=== PATIENT | male | born 1955 | race Caucasian/White ===

== ENCOUNTER 2021-01-12 10:25 | Observation (INO) | payer OTHER, MEDICARE, SELFPAY ==
[2021-01-12] VITALS (14 sets, daily range): BP systolic 62–137; BP diastolic 19–87; PULSE 0–71; RESP 10–18; TEMP 36.3–37.1; O2SAT 74–99; BMI 38.0; BMI 35.2
--- NOTE | 2021-01-12 10:29 | RAD_ITS ---
STUDY: X-RAY CHEST REASON FOR EXAM: Male, 65 years old. Substernal chest pain TECHNIQUE: Single AP portable view of the chest. COMPARISON: 04/06/2012 FINDINGS: EKG leads overlie the chest The lungs are clear and expanded. There is no demonstrated pleural abnormality. Normal size heart. Normal mediastinum and althea. Normal visualized pulmonary arteries. Normal visualized aortic arch and descending thoracic aorta. Normal visualized thoracic spine. Normal visualized ribs, clavicles, and shoulders. There is no demonstrated abnormality of the visualized soft tissue structures of the upper abdomen. RAD/Chest 1 View (Portable) IMPRESSION: No acute pulmonary process Electronically Signed: Alan Murphy MD at 11:17 EDT , Service support ,
--- NOTE | 2021-01-12 10:29 | EKG12_ITS ---
Test Reason : CP Blood Pressure : / mmHG Vent. Rate : 054 BPM Atrial Rate : 054 BPM P-R Int : 250 ms QRS Dur : 088 ms QT Int : 424 ms P-R-T Axes : -26 -37 -20 degrees QTc Int : 402 ms Sinus bradycardia with 1st degree A-V block Left axis deviation Low voltage QRS Inferior infarct , age undetermined Cannot rule out Anteroseptal infarct , age undetermined Abnormal ECG Confirmed by JERRICA CLEMENT, DOMENIC ([id number]), senior editor TIBURCIO CRYSTAL ([id number]) on 01/17/2021 9:49:02 AM Referred By: OLGA LIDIA Confirmed By:HAYLIE BECERRIL MD
--- NOTE | 2021-01-12 10:33 | ED.VIS.CHEST ---
HPI History of Present Illness Chief Complaint: Chest Pain Narrative Narrative: Patient presents with about an hour and a half of chest pain he was sitting down when it started. Pain is described as pain. There is some slight radiation to the back but no tearing sensation. There is no pleuritic component. No lower extremity edema. No calf pain. No recent fever chills cough or congestion. There is no epigastric pain. No nausea or vomiting. PFSH PFS Medical History Asthma COPD (chronic obstructive pulmonary disease) Former smoker Hypertension Myocardial infarct Sleep apnea Allergy/AdvReac Type Severity Reaction Status Date / Time No Known Allergies Allergy Verified 01/12/21 10:29 Surgical History History of coronary artery stent placement Social History Smoking Status: Former smoker ROS ROS ED ROS Narrative Past medical history: Significant for prior VA in 2011 with 5 stents, hypertension, hypercholesterolemia. Medications: Reviewed in the medical record Social history: Noncontributory, does not smoke Review of systems: All systems negative except as indicated General: No fever Eyes: No visual changes ENT: No upper airway congestion, normal voice Neck: No neck pain Cardiovascular: Chest pain as in HPI Respiratory: No shortness of breath or cough Gastrointestinal: No abdominal pain, nausea vomiting or diarrhea Genitourinary: No dysuria Musculoskeletal: Denies myalgias no difficulty with ambulation Skin: No rash Neurological: No memory loss, confusion or any focal weakness Psych: No recent behavioral changes Hematologic: No easy bleeding or easy bruising EXAM Physical Exam Narrative Exam Narrative: Physical exam General: Patient appears chronically ill, BMI of 38, appears slightly anxious but does not appear in significant distress. Head: Normocephalic, Atraumatic Eyes: Conjunctiva not pale ENT: Moist mucous membranes Neck: Supple, Nontender, No lymphadenopathy Cardiovascular: Regular rate, Regular rhythm. I cannot reproduce chest wall pain Respiratory: No distress, CTA bilaterally Abdomen: Soft, Nontender, Nondistended Back: Nontender, Normal Inspection. Negative for: CVA tenderness Extremities: Nontender, trace symmetric bilateral lower extremity edema no calf pain. Skin: Normal color, No rash Neurological: Alert, Normal Strength, Normal Sensation Psychological: Normal affect, quite pleasant appears slightly anxious Const Vital Signs: 01/12/21 10:25 01/12/21 10:29 01/12/21 10:35 Temperature 97.5 F L Temperature Source Temporal Pulse Rate 56 L 60 Respiratory Rate 12 Respiratory Effort Normal Non-Labored Blood Pressure 121/82 H 118/77 Blood Pressure Mean 95 Pulse Ox 96 Oxygen Delivery Method Room Air 01/12/21 11:47 01/12/21 12:18 Temperature Temperature Source Pulse Rate 62 71 Respiratory Rate 10 L 18 Respiratory Effort Blood Pressure 126/87 H 101/85 H Blood Pressure Mean 100 90 Pulse Ox 99 99 Oxygen Delivery Method Room Air Room Air Heart Score History: Moderately Suspicious ECG: Nonspecific Repolarization Age: >/= 65 years Risk Factors: >/= 3 Risk Factors or History of CAD Score: 6 MDM MDM MDM Narrative Medical decision making narrative: Patient had significant chest pain however he also has a's very small PE the chest pain may not be related to the PE and he has quite a few risk factors therefore I believe he should be admitted for observation. I gave him Lovenox. Lab Data Labs: Laboratory Results - last 24 hr 01/12/21 01/12/21 01/12/21 10:40 10:40 10:40 WBC 8.5 RBC 3.32 L Hgb 8.6 L Hct 28.4 L MCV 85.5 MCH 25.9 L MCHC 30.3 L RDW Std Deviation 44.8 H RDW Coeff of Alanna 14.5 Plt Count 369 MPV 9.9 Immature Gran % (Auto) 0.400 Neut % (Auto) 77.5 H Lymph % (Auto) 12.9 L Dougherty % (Auto) 5.4 Eos % (Auto) 3.3 Baso % (Auto) 0.5 Absolute Neuts (auto) 6.6 Absolute Lymphs (auto) 1.09 Nucleated RBC % 0 Sodium 142 Potassium 4.2 Chloride 109 H Carbon Dioxide 28.0 Anion Gap 5 BUN 17 Creatinine 0.70 Estim Creat Clear Calc 115.48 Est GFR (MDRD) Af Amer 144 Est GFR (MDRD) Non-Af 119 BUN/Creatinine Ratio 24.1 H Glucose 160 H Calcium 8.8 Magnesium 2.3 Total Bilirubin 0.80 AST 13 L ALT 16 Alkaline Phosphatase 77 Troponin I < 0.015 B-Natriuretic Peptide Total Protein 6.2 L Albumin 3.1 L Globulin 3.1 Albumin/Globulin Ratio 1.0 01/12/21 10:40 WBC RBC Hgb Hct MCV MCH MCHC RDW Std Deviation RDW Coeff of Alanna Plt Count MPV Immature Gran % (Auto) Neut % (Auto) Lymph % (Auto) Dougherty % (Auto) Eos % (Auto) Baso % (Auto) Absolute Neuts (auto) Absolute Lymphs (auto) Nucleated RBC % Sodium Potassium Chloride Carbon Dioxide Anion Gap BUN Creatinine Estim Creat Clear Calc Est GFR (MDRD) Af Amer Est GFR (MDRD) Non-Af BUN/Creatinine Ratio Glucose Calcium Magnesium Total Bilirubin AST ALT Alkaline Phosphatase Troponin I B-Natriuretic Peptide 72.6 Total Protein Albumin Globulin Albumin/Globulin Ratio Radiography Diagnostic Testing: Radiology Impression Chest X-Ray 01/12/21 10:29 IMPRESSION: No acute pulmonary process Electronically Signed: Alan Murphy MD at 11:17 EDT , Service support , Chest CTA 01/12/21 11:55 IMPRESSION: Subtle low-density filling defect noted within a distal branch leading to the left lower lobe consistent with PE. Calcified coronary vessels Peripheral calcifications in the thoracic aorta without aneurysm No superimposed infiltrate or effusion Electronically Signed: Alan Murphy MD at 12:22 EDT , Service support , ADDENDUM: 01/12/21 1241 EKG Initial EKG: Comments: Sinus rhythm with a rate of 54. Prolonged DE interval at 250. Normal QTC. Nonspecific ST changes throughout and inferior Q waves. Poor progression of the R wave in precordial leads. Interpreted by emergency doctor Discharge Plan Dx/Rx/DC Orders Clinical Impression: Pulmonary embolism on left, Atypical chest pain Disposition Disposition: Acute Care Hospital [facility] Discharge Date/Time: 01/12/21 13:40
[2021-01-12] MEDS: Nitroglycerin SL (ED/IMG/CATH) 0.4 MG TABLET SL (10:35)
[2021-01-12 10:51] LABS: Absolute Lymphocyte Count 1.09 X10^3/uL (0.83-4.51); Absolute Neutrophil Count 6.6 X10^3/uL (2.0-7.7); Basophil# 0.04 X10^3/uL; Basophil% 0.5 % (0-1); Eosinophil# 0.28 X10^3/uL; Eosinophils% 3.3 % (0-5); Hematocrit 28.4 % (40-54); Hemoglobin 8.6 g/dL (13.0-16.5); Lymphocyte # 1.09 X10^3/ul (0.83-4.51); Lymphocyte % 12.9 % (19-41); Mean Corp Hgb Conc 30.3 g/dL (32-36); Mean Corpuscular Hgb 25.9 pg (27.0-32.0); Mean Corpuscular Volume 85.5 fL (80-94); Mean Platelet Vol. 9.9 fl (6.2-12.0); Monocyte# 0.46 X10^3/uL; Monocyte% 5.4 % (0-10); NRBC Flagged by Analyzer 0 % (0-5); Neutrophil # 6.55 X10^3/uL (2.7-7.7); Neutrophil % 77.5 % (47-70); Platelet Count 369 K/mm3 (150-450); RBC Distribution Width CV 14.5 % (11.6-14.6); RBC Distribution Width SD 44.8 fl (35.1-43.9); Red Blood Count 3.32 M/mm3 (4.6-6.2); White Blood Count 8.5 K/mm3 (4.4-11.0)
[2021-01-12 11:07] LABS: AST(SGOT) 13 U/L (15-37); Alanine Aminotransfer ALT/SGPT 16 U/L (16-61); Albumin, Serum 3.1 g/dL (3.2-5.0); Alkaline Phosphatase 77 U/L (45-117); Anion Gap 5 (5-15); BUN 17 mg/dL (7-18); BUN/Creat Ratio 24.1 RATIO (10-20); Calcium,Total 8.8 mg/dL (8.5-10.1); Chloride 109 mmol/L (98-107); EST Glomerular Filtration Rate 119 mL/min (>60); Est Glom Filt Rate - Afr Amer 144 mL/min (>60); Estimated Creatinine Clearance 115.48 ml/min; Globulin 3.1 g/dL (2.2-4.2); Glucose 160 mg/dL (74-106); Potassium 4.2 mmol/L (3.5-5.1); Protein, Total 6.2 g/dL (6.4-8.2); Sodium Level 142 mmol/L (136-145)
[2021-01-12] MEDS: Morphine 4 MG/ML Syringe IV (11:11)
[2021-01-12] MEDS: Ondansetron 4 MG/2 ML Vial IV (11:11)
[2021-01-12] MEDS: Famotidine 200 MG/20 ML MDV 20 MG in 0.9% Normal Saline (Pres. free 8 ML 300 MG IV (11:19)
--- NOTE | 2021-01-12 11:55 | CT_ITS ---
STUDY: CTA CHEST REASON FOR EXAM: Male, 65 years old. Worsening shortness of breath RADIATION DOSAGE (If Supplied By Facility): CTDIvol = ( 13.85 ) mGy, DLP = ( 568.35 ) mGycm TECHNIQUE: The examination was performed with the intravenous administration of IV 100mL Isovue-370. Post-processing of the angiographic images was performed, with multiplanar reformation and 3D reconstruction. Individualized dose optimization techniques were used for this CT. COMPARISON: None. FINDINGS: There is a very subtle low-density filling defect noted within a branch leading to the left lower lobe best seen on axial images 120 through 126.. There is no demonstrated filling defect within either main pulmonary artery over the first round of branches. No other filling defects are noted in other pulmonary lobes. There is atherosclerotic calcification of the aortic arch with tortuosity. There is no demonstrated aortic dissection. Normal heart and pericardium. There are calcifications of the coronary arteries. Normal mediastinum. Normal hilar regions. Normal visualized trachea and bronchi. The lungs are well expanded. Chronic interstitial changes noted in both lung dobbs without a superimposed acute pulmonary process solid dependent atelectasis noted. Normal pleura. Normal chest wall structures. There are degenerative changes of thoracic spine. Normal visualized upper abdomen. CT/CTA Chest W/WO Contrast IMPRESSION: Subtle low-density filling defect noted within a distal branch leading to the left lower lobe consistent with PE. Calcified coronary vessels Peripheral calcifications in the thoracic aorta without aneurysm No superimposed infiltrate or effusion Electronically Signed: Alan Murphy MD at 12:22 EDT , Service support ,
[2021-01-12] MEDS: HYDROmorphone 1 MG/ML Syringe IV ×2 (12:32→17:44)
--- NOTE | 2021-01-12 12:59 | NURSING ---
MED SURG OBS SEAN TEMPLE, CP
[2021-01-12] MEDS: Enoxaparin 120 MG/0.8 ML Syringe SC (13:01)
--- NOTE | 2021-01-12 13:01 | NURSING ---
CALLED MONICA JONES. LEFT MESSAGE WITH INFO ON IT.
[2021-01-12 13:11] LABS: Magnesium 2.3 mg/dL (1.6-2.6)
--- NOTE | 2021-01-12 14:03 | EKG12_ITS ---
Test Reason : Blood Pressure : / mmHG Vent. Rate : 064 BPM Atrial Rate : 064 BPM P-R Int : 238 ms QRS Dur : 092 ms QT Int : 406 ms P-R-T Axes : 010 -26 -21 degrees QTc Int : 418 ms Sinus rhythm with 1st degree A-V block Low voltage QRS Inferior infarct , age undetermined Abnormal ECG When compared with ECG of 12-JAN-2021 10:26, MANUAL COMPARISON REQUIRED, DATA IS UNCONFIRMED Confirmed by JERRICA CLEMENT, DOMENIC ([id number]), story editor TIBURCIO CRYSTAL ([id number]) on 01/17/2021 10:23:37 A M Referred By: SEAN Confirmed By:HAYLIE BECERRIL MD
--- NOTE | 2021-01-12 14:31 | PCM.HP.STD ---
HPI - General General Date of Admission: 01/12/21 HPI Narrative EMILY GUAJARDO, is a 65 M who presents chest pain, midsternal started about 9:30 AM today. Chest pain is sharp, with radiation to back. There is no associated shortness of breath, dyspnea on exertion, diaphoresis, dizziness. Patient has history of coronary artery status post 5 stents in 2011 in quick succession but thereafter he did not had significant chest pain or heart attack. Patient had multiple right hip surgery by [facility]. 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 He was discharged off prophylactic anticoagulant from SNF. In ED, CT angiogram chest was done which showed left lower lobe distal PE. Twelve-lead EMS EKG shows sinus rhythm 57, LAD, LAFB and poor progression of RR wave. Further EKG was similar except sinus bradycardia 54 bpm, KS interval 250 ms, QTC 402 ms. Previous EKG in March 2012 was sinus rhythm 86, mild RV delay, KS 206 ms. He is KS interval has progressed since then. 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 Currently, patient is chest pain-free. [facility] Medical History Asthma COPD (chronic obstructive pulmonary disease) Former smoker Hypertension Myocardial infarct Sleep apnea Allergy/AdvReac Type Severity Reaction Status Date / Time No Known Allergies Allergy Verified 01/12/21 10:29 Surgical History History of coronary artery stent placement Social History Smoking Status: Former smoker ROS ROS Narrative Constitutional: Does not report fatigue and weakness, morbid obesity HEENT: Reports systems reviewed and no addt'l complaints, except as documented Respiratory/Chest: Denies shortness of breath with exertion Gastrointestinal: Denies coffee ground emesis, hematemesis or vomiting Genitourinary: Denies burning urination Musculoskeletal: Reports joint pain and limited range of motion Neurologic: Denies seizure-like activity Endocrinology: Reports systems reviewed and no addt'l complaints, except as documented Hematologic/Lymphatic: Reports systems reviewed and no addt'l complaints, except as documented Rest 12 ROS are negative except as mentioned in HPI Vital Signs Vital Signs Vital Signs: 01/12/21 10:25 01/12/21 10:29 01/12/21 10:35 Temperature 97.5 F L Temperature Source Temporal Pulse Rate 56 L 60 Respiratory Rate 12 Respiratory Effort Normal Non-Labored Blood Pressure 121/82 H 118/77 Blood Pressure Mean 95 Blood Pressure Source Pulse Ox 96 Oxygen Delivery Method Room Air 01/12/21 11:47 01/12/21 12:18 01/12/21 13:19 Temperature 97.9 F Temperature Source Temporal Pulse Rate 62 71 68 Respiratory Rate 10 L 18 15 Respiratory Effort Blood Pressure 126/87 H 101/85 H 134/86 H Blood Pressure Mean 100 90 102 Blood Pressure Source Pulse Ox 99 99 98 Oxygen Delivery Method Room Air Room Air Room Air 01/12/21 14:28 Temperature 98.8 F Temperature Source Oral Pulse Rate 65 Respiratory Rate 18 Respiratory Effort Blood Pressure 137/84 H Blood Pressure Mean 101 Blood Pressure Source Monitor Pulse Ox 95 Oxygen Delivery Method Room Air Physical Exam Narrative General: Alert, Oriented x3, Cooperative, morbid obesity BMI 35.2 kg/m? HEENT: Atraumatic, PERRLA, EOMI, Normocephalic Oral: No Gingival or Mucosal Lesions/ Ulcerations Neck: Supple, No JVD, Negative Carotid Bruits Lungs: Air entry diminished in bilateral lung bases. No crepitation/rhonchi/wheezing. No dyspnea at rest Cardiovascular: Regular rate, Regular Rhythm, Normal S1, Normal S2, No murmurs Abdomen: Bowel Sounds Present, Soft, Non Tender, Non-Distended : No renal angle tenderness. No suprapubic tenderness. Extremities: No edema, Capillary Refill Less than 3 Seconds Skin: No rashes, No breakdown Musculoskeletal: Salvatore over right hip. No hematoma or superficial tenderness. No Tenderness to Palpation of Joints or Extremities Neurological: Cranial nerves II-XII grossly intact, Deep Tendon Reflexes 2+/4 and Symmetrical, Neuro grossly intact Psych/Mental Status: Normal Affect, Appropriate. Lab / Micro Data Result Diagrams: 01/12/21 10:40 01/12/21 10:40 Labs: Laboratory Results - last 24 hr 01/12/21 01/12/21 01/12/21 10:40 10:40 10:40 WBC 8.5 RBC 3.32 L Hgb 8.6 L Hct 28.4 L MCV 85.5 MCH 25.9 L MCHC 30.3 L RDW Std Deviation 44.8 H RDW Coeff of Alanna 14.5 Plt Count 369 MPV 9.9 Immature Gran % (Auto) 0.400 Neut % (Auto) 77.5 H Lymph % (Auto) 12.9 L Candler % (Auto) 5.4 Eos % (Auto) 3.3 Baso % (Auto) 0.5 Absolute Neuts (auto) 6.6 Absolute Lymphs (auto) 1.09 Nucleated RBC % 0 Sodium 142 Potassium 4.2 Chloride 109 H Carbon Dioxide 28.0 Anion Gap 5 BUN 17 Creatinine 0.70 Estim Creat Clear Calc 115.48 Est GFR (MDRD) Af Amer 144 Est GFR (MDRD) Non-Af 119 BUN/Creatinine Ratio 24.1 H Glucose 160 H Calcium 8.8 Magnesium 2.3 Total Bilirubin 0.80 AST 13 L ALT 16 Alkaline Phosphatase 77 Troponin I < 0.015 Total Protein 6.2 L Albumin 3.1 L Globulin 3.1 Albumin/Globulin Ratio 1.0 Radiology Impression Chest X-Ray 01/12/21 10:29 IMPRESSION: No acute pulmonary process Electronically Signed: Alan Murphy MD at 11:17 EDT , Service support , Chest CTA 01/12/21 11:55 IMPRESSION: Subtle low-density filling defect noted within a distal branch leading to the left lower lobe consistent with PE. Calcified coronary vessels Peripheral calcifications in the thoracic aorta without aneurysm No superimposed infiltrate or effusion Electronically Signed: Alan Murphy MD at 12:22 EDT , Service support , ADDENDUM: 01/12/21 1241 Assessment & Plan Assessment/Plan (1) Atypical chest pain: (2) Pulmonary embolism on left: PLAN: 1. Atypical chest pain from left lower segmental PE: Patient is being admitted in PCU. Serial troponin enzymes. First troponin negative. BNP normal. Started on Lovenox 1 mg/kg body weight every 12 hourly. [address] echo ordered. CT chest shows PE and distal branch. Calcified coronary vessels. No thoracic aortic aneurysm. 2. Coronary artery status post stents: Resume patient's cardiac medications. Patient follows material controller in [place]. 3. Hypertension: Blood pressure is normal range. 4. 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 Smoking 1 pack/day started in teenage. Bronchodilator as needed for shortness of breath. Currently not in exacerbation. 5. Morbid obesity: Weight loss counseling done. Patient follows via primary care. VT prophylaxis as mentioned above. Visit Charges OBSV E&M: 31855 Initial observation care L3
[2021-01-12 14:58] LABS: BNP,B-Type NATRIURETIC PEPTIDE 72.6 pg/mL (0-100)
[2021-01-12] MEDS: 0.9% Normal Saline 1,000 ML 75 ML IV (16:00)
[2021-01-12] MEDS: oxyCODONE 5 MG Tablet PO ×2 (16:09→20:44)
[2021-01-12] MEDS: Enoxaparin 150 MG/ML Syringe 130 MG SC (20:45)
[2021-01-12] MEDS: Atorvastatin Calcium 80 MG Tablet PO (20:45)
[2021-01-12] MEDS: Amiodarone 360 MG in Dextrose 5% Viaflo Bag 192.8 ML 33.3 MG CONT INF (21:59)
--- NOTE | 2021-01-12 22:51 | PCM.HOSP.N ---
Hospitalist Note CODE TY NOTE: Patient is a 65 y/o M w/ PMHx: COPD/Asthma, Former Tobacco use, Obesity, Hx SD s/p PCI, MICHAEL who presents to the [facility] ED on 01/12/21 with chest pain onset, midsternal starting at ~ 9:30 am. ED evaluation included CTPA which demonstrated LLL distal PE. EKG upon presentation with SR without acute evidence of ischemia and initial trop normal. Patient admitted to PCU, placed on therapeutic lovenox, continued asa therapy. Following admission, CODE ty called at 2143 secondary to VT noted on monitor with initial RN evaluation with agonal breathing demonstrated. Compressions initiated immediately. Pulse check was performed and patient was noted to be in fine V. fib therefore shock was initiated and patient continued to have serial rounds with escalating joules for recurrent V. fib on monitor with serial doses of epinephrine administration and continued CPR in the interim. Patient initiated on amiodarone initially 150 mg and repeat dose of 300 mg additionally given. Several attempts were made for intubation however patient was extremely difficult and hospitalist did contact ED physician who attempted several times with eventual success and family did confirm that patient was a significantly difficult airway and has been previously. Patient was administered also 2 A of bicarb and eventually upon repeat check of pulse at 2202 patient was at that time noted to be PEA at this time transitioned only to administration with repeat epinephrine and initially after coding for approximately half an hour time was called at 2207 however repeat pulse following this decision was assessed and patient was found to have a pulse with repeat rhythm assessments with significant bradycardia therefore several rounds of atropine and epinephrine were continued to be administer. Patient was given during code a round of succinylcholine as clamping with intubation attempts and eventually given 20 mg rocuronium as clamping with intubation attempts. During code cardiology was consulted and discussed case and agreed with interventions as well as planned external pacing given ongoing bradycardia. Initial attempts to pace at 60 were unsuccessful and patient transition to 70 mA. Amiodarone drip was initiated and patient was transitioned to the ICU with initiation of bicarb drip as well as norepinephrine given significant hypotension. Family was called with patient decline and did present prior to patient's transition to the ICU. Patient cardiac troponin significantly j carlos with initial as noted normal less than 0.015, repeat 0.229 and most recently 4.060 rising up to 10.8. Discussed patient's current status with family as following transition to the ICU no sedated therapy required and significant prolonged downtime with severe hypoxia and hypotension suspect patient likely poor outcome which was agreed by solar project coordination specialist with which case was reviewed and clerk carrier. Family decision to change CODE STATUS to DNR CCA no reintubation, no aggressive measures no aggressive procedures including avoidance of central line placement with plans to have family specifically a daughter come from [place] and when she arrives 01/13/2021 likely at approximately noon would plan withdrawal of care. Discussed with family present life being concepts and they noted intention to review together and would notify staff. Post ROSC Physical Examination: General: Intubated, unresponsive, sluggish pupillary response, not on any current sedation. Skin: Mottled color, decreased turgor, no icterus, no specific cyanosis. HEENT: AT/NC, EOM unable to be assessed, PERRL but sluggish as noted, no gag or corneal reflex, dry MM, ET tube in place with bloody secretions. Lungs: Symmetric rise, intubated, coarse bilaterally, no wheezing. Heart: Currently paced; no gallop, rub audible. Abdomen: soft, obese, NTTP, ND, distant hypoactive bowel sounds. Extremities: no specific cyanosis but mottling noted, no clubbing. Neurological: Intubated, unresponsive, sluggish pupillary response, not on any current sedation, cognitive function not intact; pupils equally reactive to light and accommodation but sluggish, no gag or corneal reflex Psychiatric: affect appears normal, no acute evidence of depressive or anxiety feelings. Critical Care Time: 127 minutes, time from 21:43-23:50, were spent addressing patients acute status including prolonged CODE, stabilization, intubation with difficult airway, discussion with solar project coordination specialist and cardiology, review of all data in collaboration with care team in addition to discussion with family. Procedures Hospitalists Procedures: Other Procedure - See Report (BILLING CODE: [id number] x 1 , [id number] x 2)
[2021-01-12] MEDS: Norepinephrine 8 mg/250 mL 0.9% NS 9.4 MG CONT INF (23:30)
--- NOTE | 2021-01-12 23:43 | RAD_ITS ---
STUDY: X-RAY CHEST REASON FOR EXAM: Male, 65 years old. ET tube placement TECHNIQUE: Single AP portable view of the chest. COMPARISON: January 12, 2021 FINDINGS: The endotracheal tube is present 3.5 cm above the len. An NG tube is present and tip is in the stomach. There are multifocal groundglass opacities left greater than right. There is no demonstrated pleural abnormality. There is borderline cardiomegaly. Normal mediastinum and althea. Normal visualized pulmonary arteries. Normal visualized aortic arch and descending thoracic aorta. Normal visualized thoracic spine. Normal visualized ribs, clavicles, and shoulders. There is no demonstrated abnormality of the visualized soft tissue structures of the upper abdomen. RAD/Chest 1 View (Portable) IMPRESSION: Multifocal infiltrates. Consider viral pneumonia possible asymmetric edema. Lines as detailed above in satisfactory position. Electronically Signed: Laxmi Gar MD at 0:54 EDT Tel , Service support ,
[2021-01-13] VITALS (8 sets, daily range): BP systolic 70–110; BP diastolic 35–83; PULSE 43–62; RESP 14–20; TEMP 37.4–38.4; O2SAT 77–100
--- NOTE | 2021-01-13 01:05 | NURSING ---
Dr Owusu at bedside talking with family about plan of care, family wants to make pt DNR, does not want to put central line in, ok with life bank being notifed
[2021-01-13 01:51] LABS: Bedside Glucose 145 mg/dL (70-110)
--- NOTE | 2021-01-13 03:20 | NURSING ---
0320 rn went to check on pt, could not feel pulse, chest not twitching from external pacer. called other RN into room to verify. 0325 dr prieto notified - pacer turned off- no pulse pronounced pt, family at bedside, 0345 dr priteo extubated pt 0430 fingerprints done of pt, blanket and flower given to , belongs taken home by .
--- NOTE | 2021-01-13 04:10 | EXP.PCM_ITS ---
Preliminary Cause of Preliminary Cause of Preliminary Cause of : Cardiopulmonary arrest Bradycardia NSTEMI Acute LLL Small Pulmonary Emboli Past Medical History: COPD/Asthma, Former Tobacco use, Obesity, Hx ND s/p PCI, MICHAEL Date of Admission: 01/12/21 Date of : 01/13/21 Principle Diagnosis Cardiopulmonary arrest Bradycardia NSTEMI Acute LLL Small Pulmonary Emboli Past Medical History: COPD/Asthma, Former Tobacco use, Obesity, Hx ND s/p PCI, MICHAEL Problem List: Active and Suspected Problems (Updated 01/12/21 @ 16:[address] Micheal Rico MD) Pulmonary embolism on left (Acute) Atypical chest pain (Acute) Hospital Course Patient is a 65 y/o M w/ PMHx: COPD/Asthma, Former Tobacco use, Obesity, Hx ND s/p PCI, MICHAEL who presents to the [facility] ED on 01/12/21 with chest pain onset, midsternal starting at ~ 9:30 am. ED evaluation included CTPA which demonstrated LLL distal PE. EKG upon presentation with SR without acute evidence of ischemia and initial trop normal. Patient admitted to PCU, placed on therapeutic lovenox, continued asa therapy. Following admission, CODE blue called at 2143 secondary to VT noted on monitor with initial RN evaluation with agonal breathing demonstrated. Compressions initiated immediately. Pulse check was performed and patient was noted to be in fine V. fib therefore shock was initiated and patient continued to have serial rounds with escalating joules for recurrent V. fib on monitor with serial doses of epinephrine administration and continued CPR in the interim. Patient initiated on amiodarone initially 150 mg and repeat dose of 300 mg additionally given. Several attempts were made for intubation however patient was extremely difficult and hospitalist did contact ED physician who attempted several times with eventual success and family did confirm that patient was a significantly difficult airway and has been previously. Patient was administered also 2 A of bicarb and eventually upon repeat check of pulse at 2202 patient was at that time noted to be PEA at this time transitioned only to administration with repeat epinephrine and initially after coding for approximately half an hour time was called at 2207 however repeat pulse following this decision was assessed and patient was found to have a pulse with repeat rhythm assessments with significant bradycardia therefore several rounds of atropine and epinephrine were continued to be administer. Patient was given during code a round of succinylcholine as clamping with intubation attempts and eventually given 20 mg rocuronium as clamping with intubation attempts. During code cardiology was consulted and discussed case and agreed with interventions as well as planned external pacing given ongoing bradycardia. Initial attempts to pace at 60 were unsuccessful and patient transition to 70 mA. Amiodarone drip was initiated and patient was transitioned to the ICU with initiation of bicarb drip as well as norepinephrine given significant hypotension. Family was called with patient decline and did present prior to patient's transition to the ICU. Patient cardiac troponin significantly j carlos with initial as noted normal less than 0.015, repeat 0.229 and most recently 4.060 rising up to 10.8. Discussed patient's current status with family as following transition to the ICU no sedated therapy required and significant prolonged downtime with severe hypoxia and hypotension suspect patient likely poor outcome which was agreed by flower machine operator with which case was reviewed and university relations vice president. Family decision to change CODE STATUS to DNR CCA no reintubation, no aggressive measures no aggressive procedures including avoidance of central line placement with plans to have family specifically a daughter come from [place] and when she arrives 01/13/2021 likely at approximately noon would plan withdrawal of care. Discussed with family present life being concepts and they noted intention to review together and would notify staff. Patient however had transient change on monitor, change in breathing pattern, 3 separate nurses assessed for pulse as well as physician without pulse noted. Pacer stopped and no rhythm noted. Time of : 3:25 am 01/13/21.
--- NOTE | 2021-01-13 04:45 | NURSING ---
pt had approx 500ml of NS within the last hr of life
--- NOTE | 2021-01-13 06:08 | NURSING ---
0500 pt cleaned up and taken to [facility]
== END 2021-01-13 03:25 ==
LOC: ED 11:23 → PCU 13:09 → ICU 23:34
PROVIDERS: Family Medicine; Admitting Provider Internal Medicine; Emergency Provider Emergency Medicine; Visit Provider Internal Medicine
DX: I26.99 Other pulmonary embolism without acute cor pulmonale (principal); I21.4 Non-ST elevation (NSTEMI) myocardial infarction; I46.9 Cardiac arrest, cause unspecified; J44.9 Chronic obstructive pulmonary disease, unspecified; G47.33 Obstructive sleep apnea (adult) (pediatric); I25.2 Old myocardial infarction; Z87.891 Personal history of nicotine dependence; I10 Essential (primary) hypertension; E78.00 Pure hypercholesterolemia, unspecified; Z68.38 Body mass index [BMI] 38.0-38.9, adult; E66.01 Morbid (severe) obesity due to excess calories; I49.01 Ventricular fibrillation; Z66 Do not resuscitate
CPT/HCPCS: 31500; 31720; 36415; 71045; 71275; 80053; 82962; 83735; 83880; 84484; 85025; 92950; 93005; 94002; 94003; 96361; 96365; 96366; 96368; 96372; 96375; 96376; 99218; 99285; J7030; J7050; Q9967; A4216; C1751; G0378; J2405; J3490